=== PATIENT | female | born 1995 | race African-American/Black ===

== ENCOUNTER 2017-12-30 20:54 | Emergency (ER) | payer OTHER ==
[2017-12-30 20:59] VITALS: BP 134/88; PULSE 78; RESP 18; TEMP 98.9; O2SAT 100
[2017-12-30] MEDS ORDERED: TETANUS/DIPHTHERIA TOXOID ADULT 0.5 ML VIAL IM ONE (21:15)
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
== END 2017-12-30 22:13 | disposition home or self-care (01) ==
LOC: NEPD 20:54
DX: S00.81XA Abrasion of other part of head, initial encounter (principal); J45.909 Unspecified asthma, uncomplicated; V48.0XXA Car driver injured in noncollision transport accident in nontraffic accident, initial encounter; Y92.411 Interstate highway as the place of occurrence of the external cause; Z88.6 Allergy status to analgesic agent; Z23 Encounter for immunization
CPT/HCPCS: 90471; 90714